=== PATIENT | female | born 1965 | race African-American/Black ===

== ENCOUNTER 2021-10-27 10:51 | Emergency (ER) | payer MEDICAID, SELFPAY ==
[2021-10-27 11:13] VITALS: BP 129/93; PULSE 85; RESP 18; TEMP 36.6; O2SAT 100
--- NOTE | 2021-10-27 12:17 | ED.GENADULT ---
HPI - General Adult General Chief complaint: Unspecified Stated complaint: post surgical issue Time Seen by Provider: 10/27/21 11:31 History of Present Illness HPI narrative: Patient is a 56-year-old female who presents ER for removal of her cholecystostomy tube. Patient was in [place] for a work training seminar when she developed pain in her right upper quadrant. She was diagnosed with cholecystitis as well as cholelithiasis. She underwent a percutaneous cholecystostomy tube placement at [facility]. She is discharged on Augmentin and with [place]. She reports approximately 120 to 200 mL of output per day from her drain. No increase in pain. No fevers or chills or sweats. No other issues. She was not given a physician to follow-up with. She has made an application to Medicaid. Patient reports that while she was up there she had a positive COVID-19 test on 10/16/2021. She has had no symptoms. Chart review which she brought with her shows that she did have a basilar pneumonia while in the hospital there. Related Data Home Medications Medication Instructions Recorded Confirmed No Home Medications 10/27/21 10/27/21 Allergies Allergy/AdvReac Type Severity Reaction Status Date / Time No Known Allergies Allergy Verified 10/27/21 11:31 Review of Systems Review of Systems: All systems reviewed & are unremarkable except as noted in HPI and below Constitutional: Constitutional: Denies chills, Denies fatigue and Denies fever(s) Cardiovascular: Cardiovascular: Denies chest pain, Denies radiating jaw, neck or arm pain and Denies palpitations Respiratory: Respiratory: Denies cough, Denies dyspnea and Denies wheezing Gastrointestinal: Gastrointestinal: Denies abdominal pain, Denies diarrhea, Denies nausea and Denies vomiting PMFSH Past Medical History Medical History (Updated 10/27/21 @ 14:33 by George Salgado MD) Cholelithiasis Surgical History Surgical History (Updated 10/27/21 @ 12:21 by George Salgado MD) Cholecystostomy care Social History Social History (Updated 10/27/21 @ 12:21 by George Salgado MD) Smoking status: Never smoker Exam Narrative: GENERAL: Well-appearing, well-nourished, and in no acute distress. HEAD: Normocephalic, atraumatic. CHEST: Clear to auscultation. No respiratory distress. HEART: Regular rate and rhythm. Normal peripheral pulses. ABDOMEN: Soft, nontender, nondistended. Cholecystostomy tube in right upper quadrant with bilious drainage and some small flecks of what appear to be gallbladder sludge. No surrounding infection . EXTREMITIES: Normal range of motion. No edema. SKIN: Warm, dry, no rash. NEURO: Alert and oriented x3. PSYCH: Normal mood and affect. Course Course Emergency Course: Discussed case with Dr. Fairchild with surgery. Recommends outpatient follow-up for further evaluation. Will likely need repeat cholangiogram. Patient made aware of treatment plan and has no other questions. Vital Signs Vital signs: Vital Signs Temperature 97.9 F 10/27/21 11:13 Pulse Rate 85 10/27/21 11:13 Respiratory Rate 18 10/27/21 11:13 Blood Pressure 129/93 H 10/27/21 11:13 Pulse Oximetry 100 10/27/21 11:13 Temperature 97.9 F 10/27/21 11:13 Pulse Rate 85 10/27/21 11:13 Respiratory Rate 18 10/27/21 11:13 Blood Pressure 129/93 H 10/27/21 11:13 Pulse Oximetry 100 10/27/21 11:13 Medical Decision Making Vital Signs Vital Signs: Vital Signs Temperature 97.9 F 10/27/21 11:13 Pulse Rate 85 10/27/21 11:13 Respiratory Rate 18 10/27/21 11:13 Blood Pressure 129/93 H 10/27/21 11:13 Pulse Oximetry 100 10/27/21 11:13 Temperature 97.9 F 10/27/21 11:13 Pulse Rate 85 10/27/21 11:13 Respiratory Rate 18 10/27/21 11:13 Blood Pressure 129/93 H 10/27/21 11:13 Pulse Oximetry 100 10/27/21 11:13 Lab Data Result diagrams: 10/27/21 12:09 10/27/21 12:50 Labs: Lab Results
[2021-10-27 12:18] LABS: Basophils Percent Auto 0.6 % (0.2-1.2); Eosinophils Absolute Auto 0.1 K/mm3 (0-0.3); Eosinophils Percent Auto 1.2 % (0-4.4); Hematocrit 35.7 % (37.0-47.0); Immature Granulocyte Absolute 0.04 K/mm3 (0.00-0.031); Immature Granulocyte Percent A 0.6 % (0-0.5); Immature Platelet Fraction Pct 2.6 % (0.9-11.2); Lymphocytes Absolute Auto 1.73 K/mm3 (0.9-3.2); Lymphocytes Percent Auto 25.4 % (18.3-44.2); Mean Corpuscular HGB Conc 30.8 g/dl (32-36); Mean Corpuscular Hemoglobin 30.5 pg (26-34); Mean Corpuscular Volume 98.9 fl (80-100); Mean Platelet Volume 10.4 fl (7.4-10.4); Monocytes Absolute Auto 0.3 K/mm3 (0.1-0.6); Neutrophils Absolute Auto 4.6 K/mm3 (1.3-6.7); Neutrophils Percent Auto 67.2 % (45.5-73.1); Platelet Count Result 346 k/mm3 (150-375); Red Blood Count 3.61 M/mm3 (4.2-5.4); Red Cell Distribution Width 14.7 % (11.5-14.5); White Blood Count 6.8 K/mm3 (4.5-10.0)
[2021-10-27 13:10] LABS: Alanine Aminotransferase 15 U/L (4-35); Albumin Level 4.6 g/dL (3.5-5.1); Alkaline Phosphatase 73 U/L (38-126); Anion Gap 7 mmol/L (8-16); Aspartate Amino Transferase 26 U/L (14-36); Bilirubin,Total 0.4 mg/dL (0.2-1.3); Blood Urea Nitrogen 10 mg/dL (7-17); Calcium 9.8 mg/dL (8.4-10.2); Carbon Dioxide 27 mmol/L (22-30); Chloride 101 mmol/L (98-107); Estimated CRCL calculation 84 ml/min; Estimated Glomerular Filt Rate > 60; Glucose 100 mg/dL (65-110); Potassium 3.9 mmol/L (3.4-5.0); Sodium 135 mmol/L (137-145)
[2021-10-27 14:55] VITALS: BP 129/90; PULSE 86; RESP 14; TEMP 36.9; O2SAT 99
== END 2021-10-27 14:55 | disposition home or self-care (01) ==
PROVIDERS: Emergency Provider Emergency Medicine; PCP Emergency Medicine
DX: K80.20 Calculus of gallbladder without cholecystitis without obstruction (principal)
CPT/HCPCS: 36415; 80053; 85025; 85055; 99283

== ENCOUNTER 2021-11-18 08:22 | Outpatient (CLI) | payer MEDICAID, SELFPAY ==
--- NOTE | ~2021-11-18 | XR_ITS ---
EXAMINATION: XR catheter cholangiogram DATE: 11/18/2021 09:14 INDICATION: Cholelithiasis post exchange cholecystostomy tube placement for acute cholecystitis. TECHNIQUE: 12 mL of Omnipaque 240 water-soluble contrast was injected into the patient's previous CTs cholecystostomy tube. A total of 11 fluoroscopic images were obtained. The catheter was then flushed with 20 mL of sterile saline. The amount of fluoroscopy time used during this procedure was 0.2 sonam marquise. Total DAP was 2.725 mGycm^2 . COMPARISON: None. FINDINGS: [employer] Administrator image demonstrates multiple subtle densities which are subsequently demonstrated is filling def ects within the decompressed gallbladder consistent with cholelithiasis. Contrast extends beyond the additional stones region of the neck of the gallbladder to opacify the normal appearing cystic and co mmon bile ducts which empties promptly into the duodenum. No evident gallstones within the common anthony e duct. There is reflux of contrast delineating a normal appearing intrahepatic biliary tree. Small a mount of reflux of contrast was observed along the catheter tract. IMPRESSION: 1. Nonobstructing cholelithiasis with injected contrast extending through the patent cystic and bryan l appearing common bile duct with no evident choledocholithiasis. Reviewed, dictated and finalized at location [facility]. [employer] IMPRESSION: 1. Nonobstructing cholelithiasis with injected contrast extending through the p atent cystic and normal appearing common bile duct with no evident choledocholi thiasis.
== END 2021-11-18 08:23 | disposition home or self-care (01) ==
PROVIDERS: PCP Emergency Medicine; Visit Provider Surgery
DX: K80.00 Calculus of gallbladder with acute cholecystitis without obstruction (principal)
CPT/HCPCS: 47531; Q9966